=== PATIENT | female | born 1940 | race Caucasian/White ===

== ENCOUNTER → 2017-05-22 | Day surgery (SDC) | payer OTHER ==
[~2017-05-22] VITALS: Ht 162.6 cm; Wt 53.5 kg
[~2017-05-22] MED LIST: AMLO10TA2 PO; BOSW5TAB PO; CHLORHEXIDINE GLUCONATE 2 % 1 PACK (2 CLOTHS) TOPICAL PRN; DO NOT ADM ANY ANTICOAGULANT DRUGS PRN; EPINEPHrine HCL (1:1000) 1 MG/ML VIAL ONE; ERGO2000 PO; FISH100020 PO; INSULIN HUMAN REGULAR 1,000 UNITS/10 ML VIAL SQ PRN; LACTATED RINGER'S 1000 ML IV PRN; LIDOCAINE HCL 2% 100 MG/5 ML SYRINGE ONE; LISI20TA PO; LUTE6CAP2 PO; METOPROLOL TARTRATE 25 MG TAB PO PRN; MIDAZOLAM HCL 2 MG/2 ML VIAL ONE; POVIDONE IODINE 5% (ANTISEPSIS KIT) 4 APPLICATIONS EACH NARE PRN; PROPOFOL 200 MG/20 ML AMP IV ONE; SODIUM CHLORID 0.9% 500 ML IV PRN; VITA200C3 PO; VITA500T83 PO
[2017-05-22 06:00] VITALS: BP 130/55; PULSE 90; RESP 18; TEMP 98.2; O2SAT 96
[2017-05-22 06:38] LABS: AUTOMATED NEUTROPHIL # 3.5 TH/MM3 (1.8-7.7); BASOPHIL % 0.5 % (0.0-2.0); EOSINOPHIL % 0.7 % (0.0-4.0); HEMATOCRIT 39.9 % (35.0-46.0); HEMO FLAGS DIFF FINAL; LYMPH % 27.8 % (9.0-44.0); LYMPHOCYTE # 1.6 TH/MM3 (1.0-4.8); MEAN CELL VOLUME 94.7 FL (80.0-100.0); MEAN CORPUSCULAR HEMOGLOBIN 32.6 PG (27.0-34.0); MEAN CORPUSCULAR HGB CONC 34.4 % (32.0-36.0); MONO % 9.7 % (0.0-8.0); NEUT % 61.3 % (16.0-70.0); PLATELET COUNT 243 TH/MM3 (150-450); RED BLOOD COUNT 4.21 MIL/MM3 (4.00-5.30); RED CELL DISTRIBUTION WIDTH 13.4 % (11.6-17.2); WHITE BLOOD COUNT 5.7 TH/MM3 (4.0-11.0)
[2017-05-22 06:47] LABS: APTT (PATIENT) 23.7 SEC (24.3-30.1); INTERNATIONAL NORMALIZED RATIO 0.9 RATIO; PROTHROMBIN TIME - PATIENT 9.9 SEC (9.8-11.6)
[2017-05-22 08:05] VITALS: TEMP 97.6
[2017-05-22 08:30] VITALS: BP 110/56; PULSE 74; RESP 16; O2SAT 94
--- NOTE | 2017-05-22 08:44 | EKG ---
Date Performed: 05/22/2017 Time Performed: 06:45:14 PTAGE: 76 years EKG: Sinus rhythm NORMAL ECG NO PREVIOUS TRACING DOCTOR: Jose Zhang Interpretating Date/Time 05/22/2017 08:42:26
--- NOTE | 2017-05-22 10:10 | MR ---
cc: NONI CHENEY M.D. DATE: 05/22/2017 PROCEDURE Fiberoptic bronchoscopy, flexible. REASON FOR BRONCHOSCOPY Left suprahilar mass, malignancy suspect. DETAILS OF PROCEDURE Fiberoptic bronchoscopy performed via LMA. Vocal cords visualized appeared intact. Trachea mildly hyperemic. Patsy sharp. Right main stem bronchus, right upper, middle and lower lobes without obstruction or mass lesion. Left upper and lower lobes inspected. No obstructive pathology or mass lesion seen. Washings obtained from both sides of the tracheobronchial tree for routine TB, fungal cultures and cytological exam. Cytologic brushings left upper lobe obtained for cytological exam. Procedure well-tolerated. Patient transferred to recovery room in stable condition. IMPRESSION 1. Mild tracheobronchitis. 2. No obstruction or mass lesion. 3. Samples obtained as above. 4. Procedure well-tolerated. 5. Patient transferred to Recovery in stable condition. MD CJ Suazo/EDGARDO /9:28 AM /10:06 AM
== END | disposition home or self-care (01) ==
LOC: HSDC 05:09
PROVIDERS: ATTEND Internal Medicine Sleep Medicine
DX: R91.8 Other nonspecific abnormal finding of lung field (principal); J40 Bronchitis, not specified as acute or chronic; J44.9 Chronic obstructive pulmonary disease, unspecified; I10 Essential (primary) hypertension; R73.03 Prediabetes; F17.210 Nicotine dependence, cigarettes, uncomplicated; Z87.891 Personal history of nicotine dependence
CPT/HCPCS: 00520; 31623; 85025; 85610; 85730; 87015; 87070; 87077; 87102; 87116; 87205; 87206; 88112; 88305; 93005; J2250; J0171

== ENCOUNTER 2017-06-24 07:48 | Inpatient (IN) | payer OTHER, MEDICARE ==
[~2017-06-24] VITALS: Ht 160 cm; Wt 53.0 kg
[2017-06-24] VITALS (9 sets, daily range): BP systolic 112–160; BP diastolic 54–73; PULSE 65–81; RESP 16–18; TEMP 97.6–98.2; O2SAT 92–97
[~2017-06-24 07:48] MED LIST changes: -CHLORHEXIDINE GLUCONATE 2 % 1 PACK (2 CLOTHS) TOPICAL PRN; -DO NOT ADM ANY ANTICOAGULANT DRUGS PRN; -EPINEPHrine HCL (1:1000) 1 MG/ML VIAL ONE; -INSULIN HUMAN REGULAR 1,000 UNITS/10 ML VIAL SQ PRN; -LACTATED RINGER'S 1000 ML IV PRN; -LIDOCAINE HCL 2% 100 MG/5 ML SYRINGE ONE; -METOPROLOL TARTRATE 25 MG TAB PO PRN; -MIDAZOLAM HCL 2 MG/2 ML VIAL ONE; -POVIDONE IODINE 5% (ANTISEPSIS KIT) 4 APPLICATIONS EACH NARE PRN; -PROPOFOL 200 MG/20 ML AMP IV ONE; -SODIUM CHLORID 0.9% 500 ML IV PRN
[2017-06-24] MEDS: SODIUM CHLOR 0.9% 1000 ML IV SCH (08:15)
[2017-06-24] MEDS ORDERED: CHOL20005 PO (08:29)
[2017-06-24 08:49] LABS: AUTOMATED NEUTROPHIL # 4.6 TH/MM3 (1.8-7.7); BASOPHIL % 0.4 % (0.0-2.0); EOSINOPHIL % 0.7 % (0.0-4.0); HEMO FLAGS DIFF FINAL; LYMPH % 25.5 % (9.0-44.0); LYMPHOCYTE # 1.8 TH/MM3 (1.0-4.8); MEAN CELL VOLUME 95.4 FL (80.0-100.0); MEAN CORPUSCULAR HEMOGLOBIN 31.6 PG (27.0-34.0); MEAN CORPUSCULAR HGB CONC 33.1 % (32.0-36.0); MONO % 9.8 % (0.0-8.0); NEUT % 63.6 % (16.0-70.0); PLATELET COUNT 279 TH/MM3 (150-450); RED CELL DISTRIBUTION WIDTH 13.6 % (11.6-17.2); WHITE BLOOD COUNT 7.2 TH/MM3 (4.0-11.0)
[2017-06-24 09:00] LABS: APTT (PATIENT) 25.1 SEC (24.3-30.1); INTERNATIONAL NORMALIZED RATIO 0.9 RATIO
[2017-06-24] MEDS ORDERED: LIDOCAINE HCL 1% 20 ML VIAL ONE ×2 (09:17→10:20)
[2017-06-24] MEDS ORDERED: MIDAZOLAM HCL 2 MG/2 ML VIAL ONE ×2 (09:21→09:57)
--- NOTE | 2017-06-24 10:33 | PD.RAD ---
Post CT Procedure Prog Note Pre Procedure Diagnosis: (1) Lung mass Post Procedure Diagnosis: (1) Lung mass Procedure Date: Jun 24, 2017 Supervising Radiologist: Neftali Gonzalez Estimated blood loss: <5 ml Plan of Activity Patient to Unit: ROPU Patient Condition: Good Additional Comments: 3 x 20g core biopsies of left upper lobe mass. Small PTX following, placed 8F left apical chest tube See PACS Report for procedural detail/treatment Neftali Gonzalez MD Jun 24, 2017 10:33
[2017-06-24] MEDS ORDERED: ONDANSETRON HCL 4 MG/2 ML VIAL IVP PRN (11:15)
[2017-06-24] MEDS ORDERED: SODIUM CHLORIDE 0.9% FLUSH 10 ML FLUSH IV FLUSH PRN (11:15)
[2017-06-24] MEDS ORDERED: NALOXONE HCL 0.4 MG/ML AMP IV PRN (11:15)
[2017-06-24] MEDS ORDERED: ACETAMINOPHEN 325 MG TAB PO PRN (11:15)
--- NOTE | 2017-06-24 11:17 | RADRPT ---
EXAM DATE/TIME: 06/24/2017 10:44 [facility] COMPARISON: CT NEEDLE BIOPSY LUNG, LEFT, June 24, 2017, 9:54. INDICATIONS : Post left lung biopsy. MEDICAL HISTORY : None. SURGICAL HISTORY : None. ENCOUNTER: Initial ACUITY: 1 day PAIN SCORE: Non-responsive. LOCATION: Bilateral chest FINDINGS: There is a pigtail catheter in place with the distal coil overlying the left lung apex. I do not see a pneumothorax. Left upper lobe mass is present. CONCLUSION: Catheter in place overlying the left lung without obvious pneumothorax. Left upper lobe mass. Ori Rios MD on June 24, 2017 at 11:14 Board Certified Radiologist. This report was verified electronically.
[2017-06-24] MEDS ORDERED: PILL SPLITTER OTHER PRN (11:45)
--- NOTE | 2017-06-24 12:55 | RADRPT ---
EXAM DATE/TIME: 06/24/2017 09:54 [facility] COMPARISON: No previous studies available for comparison. INDICATIONS : History of suprahilar left upper lobe mass with nondiagnostic transbronchial biopsy. Image data biops y has been requested. SEDATION TIME: 45 minutes BIOPSY SITE: Left MEDICATION(S): 1.) 3 mg midazolam (Versed) IV 2.) 175 mcg fentanyl (Sublimaze) IV DEVICE(S): 1.) 20 gauge Temno core biopsy needle MEDICAL HISTORY : Hypertension. SURGICAL HISTORY : None. ENCOUNTER: Initial ACUITY: 1 day PAIN SCORE: 0/10 LOCATION: Left chest A total of three core specimen(s) were obtained and sent to the laboratory for pathologic evaluation. PROCEDURE: 1. CT guided lung biopsy. 2. Conscious sedation with continuous EKG and oximetry monitoring. 3. EKG and oximetry remained stable throughout the procedure. Prior to the procedure informed consent was obtained. Any appropriate prior imaging studies were rev iewed. Using automated exposure control and adjustment of the mA and/or kV according to patient size, radiation dose was kept as low as reasonably achievable to obtain optimal diagnostic quality images. DICOM format image data is available electronically for review and comparison. The site was prepped in a sterile fashion. Full sterile technique was used, including cap, mask, bharat rile gloves and gown and a large sterile sheet. Hand hygiene and 2% chlorhexidine and/or betadine/al cohol prep was utilized per protocol for cutaneous antisepsis. The skin and subcutaneous tissues wer e infiltrated with local anesthetic solution. With CT guidance the previously identified target was localized. Biopsy was performed using the presc ribed needle as above. Adequate hemostasis was obtained with compression at the puncture site. Follow-up CT scan demonstrated a small pneumothorax. Therefore, decision was made to place a smallbor e chest tube. Please see chest tube procedure report for details. Conscious sedation was performed with the prescribed dosages and duration as above in the presence of an independent trained radiology nurse to assist in the monitoring of the patient. EKG and oximetry remained stable throughout the procedure. The patient tolerated the procedure well and there were no complications. The patient was sent to Radiology Outpatient Unit in stable condition. CONCLUSION: 1. CT-guided 20-gauge core biopsies of left upper lobe central lung mass, as above. Neftali Gonzalez MD on June 24, 2017 at 12:50 Board Certified Radiologist. This report was verified electronically.
--- NOTE | 2017-06-24 12:56 | RADRPT ---
EXAM DATE/TIME: 06/24/2017 09:54 INDICATIONS : A large left pneumothorax status post lung biopsy. SEDATION TIME: 45 - please note this includes the previous lung biopsy procedure. MEDICATION(S): 1.) 3 mg midazolam (Versed) IV 2.) 175 mcg fentanyl (Sublimaze) IV DEVICE(S): 1.) 8 Fr Yandel MEDICAL HISTORY : Hypertension. SURGICAL HISTORY : None. ENCOUNTER: Initial ACUITY: 1 day PAIN SCORE: 0/10 LOCATION: Left chest PROCEDURE: 1.) Conscious sedation with continuous EKG and oximetry monitoring. 2.) EKG and oximetry remained stable throughout the procedure. PROCEDURE : 1. CT guided chest tube placement. 2. Conscious sedation with continuous EKG and oximetry monitoring. The risks, benefits and alternatives to the procedure were explained and verbal and written consent w as obtained. The site was prepped in sterile fashion. Full sterile technique was used, including ca p, mask, sterile gloves and gown and a large sterile sheet. Hand hygiene and 2% chlorhexidine and/or betadine/alcohol prep was utilized per protocol for cutaneous antisepsis. The skin and subcutaneous tissues were infiltrated with local anesthetic solution. Using automated exposure control and adjus tment of the mA and/or kV according to patient size, radiation dose was kept as low as reasonably ach ievable to obtain optimal diagnostic quality images. DICOM format image data is available electronic ally for review and comparison. With CT guidance the chest was punctured and the prescribed catheter was placed in the lung apex. Wal l suction was applied. Post procedure images demonstrate satisfactory position of the tube. The cat heter was sutured in place and a Percu-Stay was applied. Conscious sedation was performed with the prescribed dosages and duration as above. The patient costa ated the procedure well and there were no complications. EKG and oximetry remained stable throughout the procedure. The patient was sent to post anesthesia recovery in stable condition. CONCLUSION: 1. Placement of 8 Frisian nonlocking left apical chest tube for treatment of pneumothorax status post lung biopsy. Neftali Gonzalez MD on June 24, 2017 at 12:53 Board Certified Radiologist. This report was verified electronically.
[2017-06-24] MEDS ORDERED: MORPHINE SULFATE 4 MG/ML INJ IV PUSH PRN (14:15)
[2017-06-24] MEDS: ACETAMINOPHEN/HYDROcodone 325 MG/7.5 MG TAB PO PRN ×2 (15:01→23:30)
--- NOTE | 2017-06-24 15:15 | HHI.HP ---
HPI Service [facility] Primary Care Physician Unknown Admission Diagnosis Diagnoses: Chief Complaint: Pneumothorax after CT-guided lung biopsy. Travel History International Travel<30 Days: No Contact w/Intl Traveler <30 Da: No Traveled to Known Affected Are: No History of Present Illness 76-year-old female with a medical history significant for hypertension, breast cancer status post lumpectomy who was brought into the radiology department for CT-guided biopsy of a left lung mass. The patient subsequently had a pneumothorax after the procedure requiring chest tube placement. Hospitalist service contacted for admission. The patient is evaluated in the recovery area. She reports that it is painful to take deep breaths but otherwise feeling okay. No chest pressure. She reports the only mass was found incidentally on a chest x-ray that was obtained after she reported some rib pain from a mechanical fall. Review of Systems Constitutional: DENIES: Fever, Chills Except as stated in HPI: all other systems reviewed are Neg Past Family Social History Past Medical History History of lung cancer status post lobectomy. Did not require radiation or chemotherapy. Hypertension Past Surgical History Lumpectomy 2 C-sections Skin cancer removal Reported Medications Reported Meds & Active Scripts Active Reported D3 Super Strength (Cholecalciferol) 2,000 Unit Cap 2,000 Units PO DAILY Fish Oil 1000 mg (Nocatee-3 Fatty Acids) 1 Cap Cap 1 Cap PO BID Osteo Bi-Flex One A Day (Myknwfsoz-Rqrkfshgivn-Jruuayu) 1 Tab 1 Tab PO DAILY Lutein 6 Mg Cap 6 Mg PO BID Vitamin C ER (Ascorbic Acid) 500 Mg Yao 500 Mg PO BID Vitamin E 200 Unit Cap 200 Units PO DAILY Lisinopril-Hctz 20-12.5 Mg Tab 1 Tab PO DAILY Amlodipine (Amlodipine Besylate) 10 Mg Tab 10 Mg PO HS Allergies: Coded Allergies: caffeine (Unverified Allergy, Severe, TACHYCARDIA, 06/24/17) famotidine (Verified Allergy, Severe, Twitching, 06/24/17) lactase (Verified Allergy, Severe, Diarrhea, 06/24/17) nut - unspecified (Verified Allergy, Severe, Anaphylaxis, 06/24/17) shellfish derived (Verified Allergy, Severe, Anaphylaxis, 06/24/17) Sulfa (Sulfonamide Antibiotics) (Unverified Allergy, Intermediate, Hives, 06/24/17) metoclopramide (Unverified Allergy, Mild, Twitching, 06/24/17) Uncoded Allergies: NUTS (Allergy, Severe, Anaphylaxis, 05/21/17) TAPE (Allergy, Intermediate, Rash, 06/24/17) Family History Father has history of lung cancer Social History Patient smoked tobacco on and off about 1 pack per day. She reports she is down to 3-4 cigarettes a day. Admits to occasional beer Physical Exam Vital Signs Vital Signs Date Time Temp Pulse Resp B/P (MAP) Pulse Ox O2 Delivery O2 Flow Rate FiO2 06/24/17 12:00 69 16 117/55 (75) 95 06/24/17 11:30 78 16 142/69 (93) 96 06/24/17 11:00 72 16 136/62 (86) 96 06/24/17 10:45 98.0 81 16 160/73 (102) 94 06/24/17 08:03 98.2 71 18 133/58 (83) 97 06/24/17 08:03 Room Air Physical Exam GENERAL: This is a well-nourished, well-developed patient, in no apparent distress. SKIN: Left upper chest dressing appear intact, left upper chest tube in place to waterseal. No leaks noted. HEAD: Atraumatic. Normocephalic. No temporal or scalp tenderness. EYES: Pupils equal round and reactive. Extraocular motions intact. No scleral icterus. No injection or drainage. ENT: Nose without bleeding, purulent drainage or septal hematoma. Throat without erythema, tonsillar hypertrophy or exudate. Uvula midline. Airway patent. NECK: Trachea midline. No JVD or lymphadenopathy. Supple, nontender, no meningeal signs. CARDIOVASCULAR: Regular rate and rhythm without murmurs, gallops, or rubs. RESPIRATORY: Respiratory effort is fair. Clear to auscultation in all lung rivas except for diminished breath sounds in the left upper lung rivas.No wheezes, rales, or rhonchi. GASTROINTESTINAL: Abdomen soft, non-tender, nondistended. No hepato-splenomegaly , or palpable masses. No guarding. MUSCULOSKELETAL: Extremities without clubbing, cyanosis, or edema. No joint tenderness, effusion, or edema noted. No calf tenderness. Negative Homans sign bilaterally. NEUROLOGICAL: Awake and alert. Cranial nerves II through XII intact. Motor and sensory grossly within normal limits. Five out of 5 muscle strength in all muscle groups. Normal speech. Laboratory Laboratory Tests Test 06/24/17 08:39 White Blood Count 7.2 Red Blood Count 4.50 Hemoglobin 14.2 Hematocrit 43.0 Mean Corpuscular Volume 95.4 Mean Corpuscular Hemoglobin 31.6 Mean Corpuscular Hemoglobin Concent 33.1 Red Cell Distribution Width 13.6 Platelet Count 279 Mean Platelet Volume 8.4 Neutrophils (%) (Auto) 63.6 Lymphocytes (%) (Auto) 25.5 Monocytes (%) (Auto) 9.8 Eosinophils (%) (Auto) 0.7 Basophils (%) (Auto) 0.4 Neutrophils # (Auto) 4.6 Lymphocytes # (Auto) 1.8 Monocytes # (Auto) 0.7 Eosinophils # (Auto) 0.0 Basophils # (Auto) 0.0 CBC Comment DIFF FINAL Differential Comment Prothrombin Time 10.0 Prothromb Time International Ratio 0.9 Activated Partial Thromboplast Time 25.1 Result Diagram: 06/24/17 0839 Imaging Last Impressions Lung Biopsy CT 06/24/17 0000 Signed Impressions: Service Date/Time: Saturday, June 24, 2017 09:54 - CONCLUSION: 1. CT- guided 20-gauge core biopsies of left upper lobe central lung mass, as above. Neftali Gonzalez MD Chest X-Ray 06/24/17 0000 Signed Impressions: Service Date/Time: Saturday, June 24, 2017 10:44 - CONCLUSION: Catheter in place overlying the left lung without obvious pneumothorax. Left upper lobe mass. Ori Rios MD Chest Tube Insertion 06/24/17 0000 Signed Impressions: Service Date/Time: Saturday, June 24, 2017 09:54 - CONCLUSION: 1. Placement of 8 English nonlocking left apical chest tube for treatment of pneumothorax status post lung biopsy. MD Brendan Carlin VTE Risk Assessment Brendan VTE Risk Assessment: No/Low Risk (score <= 1) VTE Pharm Contraindication: High risk for bleeding Caprini Risk Assessment Model Point Value = 1 Point Value = 2 Point Value = 3 Point Value = 5 Age 41-60 Minor surgery BMI > 25 kg/m2 Swollen legs Varicose veins or History of unexplained or recurrent spontaneous Oral contraceptives or hormone replacement Sepsis (< 1 month) Serious lung disease, including pneumonia (< 1 month) Abnormal pulmonary function Acute myocardial infarction Congestive heart failure (< 1 month) History of inflammatory bowel disease Medical patient at bed rest Age 61-74 Arthroscopic surgery Major open surgery (> 45 min) Laparoscopic surgery (> 45 min) Malignancy Confined to bed (> 72 hours) Immobilizing plaster cast Central venous access Age >= 75 History of VTE Family history of VTE Factor V Leiden Prothrombin [id number] Lupus anticoagulant Anticardiolipin antibodies Elevated serum homocysteine Heparin-induced thrombocytopenia Other congenital or acquired thrombophilia Stroke (< 1 month) Elective arthroplasty Hip, pelvis, or leg fracture Acute spinal cord injury (< 1 month) Prophylaxis Regimen Total Risk Factor Score Risk Level Prophylaxis Regimen 0-1 Low Early ambulation 2 Moderate Order ONE of the following: *Sequential Compression Device (SCD) *Heparin 5000 units SQ BID 3-4 Higher Order ONE of the following medications: *Heparin 5000 units SQ TID *Enoxaparin/Lovenox 40 mg SQ daily (WT < 150 kg, CrCl > 30 mL/min) *Enoxaparin/Lovenox 30 mg SQ daily (WT < 150 kg, CrCl > 10-29 mL/min) *Enoxaparin/Lovenox 30 mg SQ BID (WT < 150 kg, CrCl > 30 mL/min) AND/OR *Sequential Compression Device (SCD) 5 or more Highest Order ONE of the following medications: *Heparin 5000 units SQ TID (Preferred with Epidurals) *Enoxaparin/Lovenox 40 mg SQ daily (WT < 150 kg, CrCl > 30 mL/min) *Enoxaparin/Lovenox 30 mg SQ daily (WT < 150 kg, CrCl > 10-29 mL/min) *Enoxaparin/Lovenox 30 mg SQ BID (WT < 150 kg, CrCl > 30 mL/min) AND *Sequential Compression Device (SCD) Assessment and Plan Problem List: (1) Pneumothorax after biopsy ICD Code: J95.811 - Postprocedural pneumothorax Plan: Status post chest tube placement. IR following. Repeat chest x-ray in a.m. Supplemental oxygen as needed. Patient control (2) Hypertension ICD Code: I10 - Essential (primary) hypertension Plan: Controlled. Continue amlodipine and lisinopril. Physician Certification 2 Midnight Certification Type: Admission for Inpatient Services Order for Inpatient Services The services are ordered in accordance with Medicare regulations or non- Medicare payer requirements, as applicable. In the case of services not specified as inpatient-only, they are appropriately provided as inpatient services in accordance with the 2-midnight benchmark. Estimated LOS (days): 2 days is the estimated time the patient will need to remain in the hospital, assuming treatment plan goals are met and no additional complications. Post-Hospital Plan: Home Felipe Montalvo MD Jun 24, 2017 15:14
[2017-06-24] MEDS: SODIUM CHLORIDE 0.9% FLUSH 10 ML FLUSH IV FLUSH SCH (20:04)
[2017-06-25 00:34] VITALS: BP_SYST 109; BP_SYST 132; BP_DIAS 51; BP_DIAS 60; PULSE 60; RESP 18; TEMP 97.6; O2SAT 98
[2017-06-25 04:14] VITALS: BP 113/56; PULSE 62; RESP 17; TEMP 97.2; O2SAT 96
--- NOTE | 2017-06-25 06:59 | RADRPT ---
EXAM DATE/TIME: 06/25/2017 05:52 [facility] COMPARISON: CHEST EXPIRATION ONLY, June 24, 2017, 10:44. CT NEEDLE BIOPSY LUNG, LEFT, June 24, 2017, 9:54. INDICATIONS : Post left lung biopsy, evaluate pneumothorax MEDICAL HISTORY : None. SURGICAL HISTORY : chest tube ENCOUNTER: Subsequent ACUITY: 2 days PAIN SCORE: 0/10 LOCATION: Bilateral chest FINDINGS: Small caliber left chest tube is present. Minimal basal atelectasis. No pneumothorax. heart size uppe r limits normal. Left upper lobe mass noted. CONCLUSION: 1. Small caliber left chest tube. Patient status post biopsy of left upper lobe mass. No pneumothorax . Nilton Gilmore MD on June 25, 2017 at 6:55 Board Certified Radiologist. This report was verified electronically.
[2017-06-25 08:00] VITALS: BP 138/63; PULSE 70; RESP 17; TEMP 96.7; O2SAT 92
[2017-06-25] MEDS: SODIUM CHLORIDE 0.9% FLUSH 10 ML FLUSH IV FLUSH SCH (08:11)
[2017-06-25] MEDS: ACETAMINOPHEN/HYDROcodone 325 MG/7.5 MG TAB PO PRN (08:11)
[2017-06-25] MEDS: SODIUM CHLOR 0.9% 1000 ML IV SCH (08:15)
[2017-06-25] MEDS ORDERED: LISINOPRIL 20 MG TAB PO SCH (09:00)
[2017-06-25] MEDS ORDERED: HYDROCHLOROTHIAZIDE 25 MG TAB PO SCH (09:00)
[2017-06-25] MEDS ORDERED: NON-FORMULARY DRUG (Lisinopril-Hctz 1 TAB) PO SCH (09:00)
--- NOTE | 2017-06-25 11:35 | HHI.PR ---
Subjective Remarks Patient reports she is feeling great. She wants to go home. She denies any shortness of breath. Objective Vitals Vital Signs Date Time Temp Pulse Resp B/P (MAP) Pulse Ox O2 Delivery O2 Flow Rate FiO2 06/25/17 08:00 96.7 70 17 138/63 (88) 92 06/25/17 08:00 70 06/25/17 06:19 21 06/25/17 04:14 97.2 62 17 113/56 (75) 96 06/25/17 00:34 97.6 60 18 109/51 (70) 98 06/24/17 20:01 65 06/24/17 20:00 97.6 68 17 112/54 (73) 92 06/24/17 16:00 74 06/24/17 15:37 97.7 65 18 124/60 (81) 95 06/24/17 12:00 69 16 117/55 (75) 95 I/O 06/24/17 06/24/17 06/24/17 06/25/17 06/25/17 06/25/17 06:59 14:59 22:59 06:59 14:59 22:59 Intake Total 1000 ml 660 ml 280 ml Output Total 600 ml Balance 1000 ml 60 ml 280 ml Intake Oral 660 ml 280 ml IV Total 1000 ml Output Urine Total 600 ml # Voids 1 1 Result Diagram: 06/24/17 0839 Imaging Last Impressions Chest X-Ray 06/25/17 0000 Signed Impressions: Service Date/Time: June 05:52 - CONCLUSION: 1. Small caliber left chest tube. Patient status post biopsy of left upper lobe mass. No pneumothorax. Nilton Gilmore MD Lung Biopsy CT 06/24/17 0000 Signed Impressions: Service Date/Time: Saturday, June 24, 2017 09:54 - CONCLUSION: 1. CT- guided 20-gauge core biopsies of left upper lobe central lung mass, as above. Neftali Gonzalez MD Chest Tube Insertion 06/24/17 0000 Signed Impressions: Service Date/Time: Saturday, June 24, 2017 09:54 - CONCLUSION: 1. Placement of 8 Scottish nonlocking left apical chest tube for treatment of pneumothorax status post lung biopsy. Neftali Gonzalez MD Objective Remarks GENERAL: This is a well-nourished, well-developed patient, in no apparent distress. SKIN: Left upper chest dressing appear intact, left upper chest tube in place to waterseal. No leaks noted. CARDIOVASCULAR: Normal rate and regular rhythm without murmurs, gallops, or rubs. RESPIRATORY: Good respiratory efforts. Breath sounds equal and clear to auscultation bilaterally. GASTROINTESTINAL: Abdomen soft, non-tender, non-distended. Normal active bowel sounds MUSCULOSKELETAL: Extremities without cyanosis, or edema. NEURO: Alert & Oriented x4 to person, place, time, situation. Moves all ext x4 PSYCH: Appropriate mood and affect. A/P Problem List: (1) Pneumothorax after biopsy ICD Code: J95.811 - Postprocedural pneumothorax Plan: Status post chest tube placement. IR following. Repeat chest x-ray today did not show a pneumothorax. Further chest tube management per IR. MARIA ALEJANDRA RN. Supplemental oxygen as needed. Patient control (2) Hypertension ICD Code: I10 - Essential (primary) hypertension Plan: Controlled. Continue amlodipine and lisinopril. Felipe Montalvo MD Jun 25, 2017 11:35
[2017-06-25 12:00] VITALS: BP 95/52; PULSE 69; RESP 17; TEMP 98.1; O2SAT 93
--- NOTE | 2017-06-25 14:49 | RADRPT ---
EXAM DATE/TIME: 06/25/2017 14:19 [facility] COMPARISON: CT NEEDLE BIOPSY LUNG, LEFT, June 24, 2017, 9:54. CHEST EXPIRATION ONLY, June 25, 2017, 5:52. INDICATIONS : Pneumothorax. MEDICAL HISTORY : Hypertension. Chronic obstructive pulmonary disease. SURGICAL HISTORY : None. ENCOUNTER: Initial ACUITY: 1 day PAIN SCORE: 0/10 LOCATION: Bilateral chest FINDINGS: Masslike density left upper lobe has not changed There is no appreciable pleural effusion for techniq ue. Heart and mediastinum are unremarkable. Chest tube is present on the left side. CONCLUSION: No pneumothorax. Licha Ramon MD on June 25, 2017 at 14:47 Board Certified Radiologist. This report was verified electronically.
[2017-06-25 16:00] VITALS: BP 125/58; PULSE 79; RESP 18; TEMP 98.2; O2SAT 95
--- NOTE | 2017-06-25 16:19 | RADRPT ---
EXAM DATE/TIME: 06/25/2017 00:00 [facility] COMPARISON: No previous studies available for comparison. INDICATIONS : pneumothorax post lung biopsy DEVICE(S): 1.) Vaseline occlusive dressing PROCEDURE : Chest tube removal. Using aseptic technique the previously placed chest tube was easily removed in one piece and Vaseline gauze and sterile dressing was applied. Chest radiograph is to be obtained. There CONCLUSION: Uncomplicated chest tube removal. Denton Terrazas MD on June 25, 2017 at 16:17 Board Certified Radiologist. This report was verified electronically.
--- NOTE | 2017-06-25 17:48 | RADRPT ---
EXAM DATE/TIME: 06/25/2017 16:45 [facility] COMPARISON: CHEST SINGLE AP, June 25, 2017, 14:19. INDICATIONS : Pneumothorax MEDICAL HISTORY : None. SURGICAL HISTORY : chest tube. Left lung biopsy ENCOUNTER: Subsequent ACUITY: 2 days PAIN SCORE: 0/10 LOCATION: Bilateral chest FINDINGS: There is no appreciable pleural effusion for technique. Heart and mediastinum are unremarkable. Prev iously seen left chest tube has been removed. No definite pneumothorax is seen for technique. Left up per lobe mass is again seen. CONCLUSION: No definite pneumothorax is seen for technique. Licha Ramon MD on June 25, 2017 at 17:46 Board Certified Radiologist. This report was verified electronically.
== END 2017-06-25 19:24 | disposition home or self-care (01) | DRG 200 ==
LOC: HRAD 07:48 → HRIP 07:49 → N07A 11:11 → HRAD 15:17
PROVIDERS: ADMIT Family Medicine; ATTEND Family Medicine
PROC: 0BBG3ZX Excision of Left Upper Lung Lobe, Percutaneous Approach, Diagnostic (ICD-10-PCS; principal; 2017-06-24)
PROC: 0W9B30Z Drainage of Left Pleural Cavity with Drainage Device, Percutaneous Approach (ICD-10-PCS; 2017-06-24)
DX: J95.811 Postprocedural pneumothorax (principal); C34.02 Malignant neoplasm of left main bronchus; J44.9 Chronic obstructive pulmonary disease, unspecified; I10 Essential (primary) hypertension; E11.9 Type 2 diabetes mellitus without complications; F17.210 Nicotine dependence, cigarettes, uncomplicated; Z80.1 Family history of malignant neoplasm of trachea, bronchus and lung; Z85.118 Personal history of other malignant neoplasm of bronchus and lung; Z85.3 Personal history of malignant neoplasm of breast; Z85.828 Personal history of other malignant neoplasm of skin; Z90.2 Acquired absence of lung [part of]; Z88.2 Allergy status to sulfonamides; Z91.018 Allergy to other foods; Z91.013 Allergy to seafood
CPT/HCPCS: 32405; 32557; 71010; 77012; 85025; 85610; 85730; 88305; 88341; 88342; C1729; C1769; J2250; J3010; J7030

== ENCOUNTER → 2017-08-19 | Day surgery (SDC) | payer OTHER ==
[~2017-08-19] MED LIST changes: +ACETAMINOPHEN 1000 MG/100 ML 100 ML IV ONE; +BUPIVACAINE/EPINEPHRINE 0.25% 50 ML VIAL ONE; +CHOL20005 PO; -ERGO2000 PO; +LACTATED RINGER'S 1000 ML INJ 1,000 ML ONE; +MIDAZOLAM HCL 2 MG/2 ML VIAL ONE; +PROPOFOL 500 MG/50 ML BTL IV ONE; +SODIUM CHLORIDE 0.9% INJ 10 ML ONE; +ceFAZolin INJ 1,000 MG VIAL ONE
--- NOTE | 2017-08-19 14:49 | TN ---
cc: OBED PICKERING M.D. DATE OF SURGERY: 08/19/2017 PREOPERATIVE DIAGNOSIS Lung cancer, in need of Tfvmnq-F-Zhuw. POSTOPERATIVE DIAGNOSIS Lung cancer, in need of Bqocjj-J-Iycx. PROCEDURE 1. Attempted left subclavian Qjxrxd-P-Gdko placement by percutaneous insertion, abandoned secondary to inability to cannulate the subclavian vein. 2. Cutdown to left subclavian vein in the deltopectoral groove, abandoned secondary to inability to advance guidewire past the clavicle in the left subclavian vein. 3. Attempted right subclavian vein percutaneous insertion, abandoned secondary to inability to cannulate the subclavian vein. 4. Placement of right IJ under fluoroscopic guidance with Wlqqyt-N-Ieoh for chemotherapy. ANESTHESIA General. SURGEON Dr. Pickering. INDICATION This is a pleasant 76-year-old lady who has lung cancer. She needs an Encexv-N-Hlvn for poor IV access and chemotherapy. DETAILS OF PROCEDURE The patient was taken to the operating room and placed in the supine position. After anesthesia her bilateral neck and chest were prepped with Betadine. We had planned on placing a left subclavian Iwbqiu-A-Gpqs because of the tumor on the left side. We then attempt to cannulate the subclavian vein on the left side. And after numerous attempts we are unable to cannulate the subclavian vein and for this reason it is abandoned We then do a cutdown in the deltopectoral groove and actually are able to get proximal and distal control of a vein in the deltopectoral groove. We make an small venotomy. I am able to cannulate the vein, however, the guidewire cannot be advanced past the subclavian at the junction of the clavicle. Multiple attempts at this is done but it cannot be advanced, and for this reason this is abandoned. We then simply tie off the proximal and distal portion of the vein in the deltopectoral groove. The deep layer is closed with 3-0 Vicryl and the skin is closed with 4-0 Vicryl. We then on the right side attempt to cannulate the right subclavian vein. I did unfortunately stick the artery one time, but again I cannot cannulate the subclavian vein and for this reason this technique is abandoned We are then able to identify the right IJ using a tracer needle, cannulate the IJ on the right side. An 18-gauge needle is was then used to cannulate the subclavian vein with good blood return. We then place the guidewire under fluoroscopic guidance and see it advance into the superior vena cava and into the atrial junction. The catheter is then cut to size, about 22 cm. We tunnel the catheter to the right chest wall. We then place the introducer and dilator under fluoroscopic guidance. The catheter is then threaded through the introducer so it lays in the superior vena cava. The small puncture site is closed with a Vicryl suture. The catheter is then adjusted so it lays in the superior vena cava. The catheter is cut at 22 cm. The port is then snapped into place and port is then placed in the subcutaneous pocket, secured to the deep layer with 3-0 Vicryl and the skin is closed with 4-0 Vicryl. It is noted that we aspirate blood quite easily and flush with the heparinized saline solution. The wounds are then covered with a sterile bandage. The patient had a stat. chest x-ray which showed no pneumothorax and placement of the Zpjdqu-R-Oxfb on the right side. Discussed the intraoperative events with the patient and the patient's family, and she may proceed with her chemotherapy and radiation therapy as planned. Obed Pickering MD JDB/EDGARDO /1:51 PM /2:22 PM
== END | disposition home or self-care (01) ==
LOC: ESDC 09:19
PROVIDERS: ATTEND Surgery
DX: Z45.2 Encounter for adjustment and management of vascular access device (principal); C34.90 Malignant neoplasm of unspecified part of unspecified bronchus or lung
CPT/HCPCS: 00532; 36561; 77001; C1788; J0131; J0690; J1642; J2250; J3010; J7120

== ENCOUNTER 2017-08-28 12:28 | Emergency (ER) | payer OTHER ==
[~2017-08-28] VITALS: Ht 162.6 cm; Wt 52.7 kg
[~2017-08-28 12:28] MED LIST changes: -ACETAMINOPHEN 1000 MG/100 ML 100 ML IV ONE; -BUPIVACAINE/EPINEPHRINE 0.25% 50 ML VIAL ONE; -CHOL20005 PO; +D200CAP PO; -LACTATED RINGER'S 1000 ML INJ 1,000 ML ONE; -MIDAZOLAM HCL 2 MG/2 ML VIAL ONE; -PROPOFOL 500 MG/50 ML BTL IV ONE; -SODIUM CHLORIDE 0.9% INJ 10 ML ONE; -ceFAZolin INJ 1,000 MG VIAL ONE
[2017-08-28 12:35] VITALS: BP 140/64; PULSE 91; RESP 16; TEMP 98.4; O2SAT 95
--- NOTE | 2017-08-28 13:06 | PD ---
HPI Chief Complaint: Cardiac Complaint Time Seen by Provider: 12:55 Travel History International Travel<30 days: No Contact w/Intl Traveler<30days: No Traveled to known affect area: No History of Present Illness HPI The patient was seen and examined in the presence of the nurse. This patient complains of sensation of racing heartbeat. Duration one week. Symptoms severity is mild to moderate. No syncope or presyncopal symptoms or chest pain. She denies history of cardiac disease. She currently feels well. She is getting chemotherapy and radiation for lung cancer. No alleviating factors. No exacerbating factors. PFSH Past Medical History Cancer: Yes (RIGHT BREAST, LUNG, SKIN) Cardiovascular Problems: No Diabetes: Yes (BOARDERLINE) Patient Takes Glucophage: No Endocrine: No Gastrointestinal Disorders: Yes (REFLUX) Genitourinary: No Hepatitis: No Hiatal Hernia: No Hypertension: Yes Immune Disorder: No Medical other: Yes (HX FALL 04/2017 pt. sts "I tripped on a cored.") Musculoskeletal: Yes (OSTEOPENIA) Neurologic: Yes (OCCULAR MIGRAINES) Psychiatric: No Reproductive: No Respiratory: Yes (MASS LEFT LUNG, COPD) Immunizations Current: No Thyroid Disease: No Menopausal: Yes Past Surgical History Abdominal Surgery: Yes (betty, x-vsgjbddb-[id number]) AICD: No Appendectomy: Yes Cardiac Surgery: No Section: Yes (X2) Ear Surgery: No Endocrine Surgery: No Eye Surgery: No Genitourinary Surgery: No Gynecologic Surgery: Yes (RIGHT LUMPECTOMY, CYST REMOVED FROM OVARY) Joint Replacement: No Oral Surgery: Yes (T/A) Pacemaker: No Thoracic Surgery: Yes (lung bx) Other Surgery: Yes Social History Alcohol Use: No Tobacco Use: No Substance Use: No Allergies-Medications (Allergen,Severity, Reaction): Coded Allergies: caffeine (Unverified Allergy, Severe, TACHYCARDIA, 08/28/17) famotidine (Verified Allergy, Severe, Twitching, 08/28/17) lactase (Verified Allergy, Severe, Diarrhea, 08/28/17) nut - unspecified (Verified Allergy, Severe, Anaphylaxis, 08/28/17) shellfish derived (Verified Allergy, Severe, Anaphylaxis, 08/28/17) Sulfa (Sulfonamide Antibiotics) (Unverified Allergy, Intermediate, Hives, 08/28/17) metoclopramide (Unverified Allergy, Mild, Twitching, 08/28/17) Uncoded Allergies: NUTS (Allergy, Severe, Anaphylaxis, 05/21/17) TAPE (Allergy, Intermediate, Rash, 06/24/17) Reported Meds & Prescriptions Reported Meds & Active Scripts Active Reported D3 Super Strength (Cholecalciferol) 2,000 Unit Cap 2,000 Units PO DAILY Osteo Bi-Flex One A Day (Tomymakvc-Clqcfjictvt-Efmrppw) 1 Tab 1 Tab PO DAILY Lutein 6 Mg Cap 6 Mg PO BID Vitamin C ER (Ascorbic Acid) 500 Mg Yao 500 Mg PO BID Vitamin E 200 Unit Cap 200 Units PO DAILY Lisinopril-Hctz 20-12.5 Mg Tab 1 Tab PO DAILY Amlodipine (Amlodipine Besylate) 10 Mg Tab 10 Mg PO HS Review of Systems General / Constitutional: No: Fever Eyes: No: Visual changes HENT: No: Headaches Cardiovascular: Positive: Palpitations, Tachycardia, No: Chest Pain or Discomfort Respiratory: No: Shortness of Breath Gastrointestinal: No: Abdominal Pain Genitourinary: No: Dysuria Musculoskeletal: No: Pain Skin: No Rash Neurologic: No: Weakness Psychiatric: No: Depression Endocrine: No: Polydipsia Hematologic/Lymphatic: No: Easy Bruising Physical Exam Narrative GENERAL: Well-nourished, well-developed patient in no apparent distress. SKIN: Focused skin assessment reveals no rash and nodules. Skin is Warm and dry. HEAD: Atraumatic. Normocephalic. EYES: Pupils equal and round. No scleral icterus. No injection or drainage. ENT: No nasal bleeding or discharge. Mucous membranes pink and moist. NECK: Trachea midline. No JVD. CARDIOVASCULAR: Regular rate and rhythm. No murmur appreciated. Heart rate is between 80 and 90 RESPIRATORY: No accessory muscle use. Clear to auscultation. Breath sounds equal bilaterally. GASTROINTESTINAL: Abdomen soft, non-tender, nondistended. Hepatic and splenic margins not palpable. MUSCULOSKELETAL: No obvious deformities. No clubbing. No cyanosis. No edema. NEUROLOGICAL: Awake and alert. No obvious cranial nerve deficits. Motor grossly within normal limits. Normal speech. PSYCHIATRIC: Appropriate mood and affect; insight and judgment normal. Data Data Last Documented VS Vital Signs Date Time Temp Pulse Resp B/P (MAP) Pulse Ox O2 Delivery O2 Flow Rate FiO2 08/28/17 13:38 76 20 106/51 (69) 95 08/28/17 12:35 98.4 Room Air Orders Orders Iv Access Insert/Monitor (08/28/17 13:01) Complete Blood Count With Diff (08/28/17 13:01) Basic Metabolic Panel (Bmp) (08/28/17 13:01) Electrocardiogram (08/28/17 ) Telephone Messenger / Telemetry MO.Q8H (08/28/17 13:01) Labs Laboratory Tests Test 08/28/17 13:00 White Blood Count 9.7 TH/MM3 Red Blood Count 3.60 MIL/MM3 Hemoglobin 10.9 GM/DL Hematocrit 33.1 % Mean Corpuscular Volume 92.0 FL Mean Corpuscular Hemoglobin 30.3 PG Mean Corpuscular Hemoglobin Concent 33.0 % Red Cell Distribution Width 12.6 % Platelet Count 477 TH/MM3 Mean Platelet Volume 7.6 FL Neutrophils (%) (Auto) 82.5 % Lymphocytes (%) (Auto) 11.0 % Monocytes (%) (Auto) 4.3 % Eosinophils (%) (Auto) 1.8 % Basophils (%) (Auto) 0.4 % Neutrophils # (Auto) 8.0 TH/MM3 Lymphocytes # (Auto) 1.1 TH/MM3 Monocytes # (Auto) 0.4 TH/MM3 Eosinophils # (Auto) 0.2 TH/MM3 Basophils # (Auto) 0.0 TH/MM3 CBC Comment DIFF FINAL Differential Comment Blood Urea Nitrogen 15 MG/DL Creatinine 0.59 MG/DL Random Glucose 108 MG/DL Calcium Level 8.9 MG/DL Sodium Level 132 MEQ/L Potassium Level 4.2 MEQ/L Chloride Level 96 MEQ/L Carbon Dioxide Level 31.1 MEQ/L Anion Gap 5 MEQ/L Estimat Glomerular Filtration Rate 99 ML/MIN [facility] Medical Decision Making Medical Screen Exam Complete: Yes Emergency Medical Condition: Yes Medical Record Reviewed: Yes Differential Diagnosis Cardiac arrhythmia, palpitations, ectopy Narrative Course I have reviewed the patient's electronic medical record. Reviewed her oncologist note from a week ago IV placed CBC shows minor anemia Metabolic profile shows minor hyponatremia but normal potassium I reviewed her EKG which shows sinus rhythm without ST elevation or ectopy Extended cardiac monitoring reveals sinus rhythm with a rare PVC I observed her for a while and she remains in sinus rhythm but no dangerous rhythm problem and is asymptomatic Should discuss this with her physician and return if she worsens Diagnosis Primary Impression: Palpitations Additional Impression: Lung malignancy Qualified Codes: C34.11 - Malignant neoplasm of upper lobe, right bronchus or lung Additional Instructions: The patient was advised to follow up with their physician and return if they worsen. Med/Other Pt SpecificInfo: Other Disposition: 01 DISCHARGE HOME Condition: Stable Domo Montes De Oca MD Aug 28, 2017 13:05
[2017-08-28 13:16] LABS: BASOPHIL % 0.4 % (0.0-2.0); EOSINOPHIL # 0.2 TH/MM3 (0-0.4); EOSINOPHIL % 1.8 % (0.0-4.0); HEMATOCRIT 33.1 % (35.0-46.0); HEMOGLOBIN 10.9 GM/DL (11.6-15.3); LYMPHOCYTE # 1.1 TH/MM3 (1.0-4.8); MEAN CORPUSCULAR HEMOGLOBIN 30.3 PG (27.0-34.0); MEAN PLATELET VOLUME 7.6 FL (7.0-11.0); MONO % 4.3 % (0.0-8.0); MONOCYTE # 0.4 TH/MM3 (0-0.9); NEUT % 82.5 % (16.0-70.0); PLATELET COUNT 477 TH/MM3 (150-450); RED CELL DISTRIBUTION WIDTH 12.6 % (11.6-17.2); WHITE BLOOD COUNT 9.7 TH/MM3 (4.0-11.0)
[2017-08-28 13:26] LABS: CALCIUM 8.9 MG/DL (8.5-10.1)
[2017-08-28 13:27] LABS: BICARBONATE 31.1 MEQ/L (21.0-32.0)
[2017-08-28 13:30] LABS: CREATININE 0.59 MG/DL (0.50-1.00)
[2017-08-28 13:38] VITALS: BP 106/51; PULSE 76; RESP 20; O2SAT 95
--- NOTE | 2017-08-30 21:13 | EKG ---
Date Performed: 08/28/2017 Time Performed: 12:46:46 PTAGE: 76 years EKG: Sinus rhythm NORMAL ECG PREVIOUS TRACING : 05/22/2017 06.45 DOCTOR: Tova Gonzales Interpretating Date/Time 08/30/2017 21:03:20
--- NOTE | 2017-08-30 21:13 | EKG ---
Date Performed: 08/28/2017 Time Performed: 12:46:46 PTAGE: 76 years EKG: Sinus rhythm NORMAL ECG PREVIOUS TRACING : 05/22/2017 06.45 DOCTOR: Tova Gonzales Interpretating Date/Time 08/30/2017 21:03:20
--- NOTE | 2017-08-30 21:13 | EKG ---
Date Performed: 08/28/2017 Time Performed: 12:46:46 PTAGE: 76 years EKG: Sinus rhythm NORMAL ECG PREVIOUS TRACING : 05/22/2017 06.45 DOCTOR: Tova Gonzales Interpretating Date/Time 08/30/2017 21:03:20
== END 2017-08-28 14:14 | disposition home or self-care (01) ==
LOC: PHED 12:28
DX: R00.2 Palpitations (principal); C34.11 Malignant neoplasm of upper lobe, right bronchus or lung; I10 Essential (primary) hypertension; R73.03 Prediabetes; Z85.3 Personal history of malignant neoplasm of breast; Z85.828 Personal history of other malignant neoplasm of skin; Z87.19 Personal history of other diseases of the digestive system; Z87.39 Personal history of other diseases of the musculoskeletal system and connective tissue; Z86.69 Personal history of other diseases of the nervous system and sense organs; Z87.09 Personal history of other diseases of the respiratory system
CPT/HCPCS: 80048; 85025; 93005

== ENCOUNTER 2018-04-16 06:18 | Day surgery (SDC) | payer OTHER ==
[~2018-04-16] VITALS: Ht 162.6 cm; Wt 53.6 kg
[~2018-04-16 06:18] MED LIST changes: -FISH100020 PO
[2018-04-16] MEDS ORDERED: OMEGCAP PO (06:54)
[2018-04-16] MEDS ORDERED: MAGN500T5 PO (06:54)
[2018-04-16] MEDS ORDERED: CYAN1TAB24 PO (06:54)
[2018-04-16] MEDS ORDERED: LORA0.5T PO (06:54)
[2018-04-16] MEDS ORDERED: FOLI400T PO (06:54)
[2018-04-16] MEDS ORDERED: SODIUM CHLOR 0.9% 1000 ML IV SCH (07:00)
[2018-04-16 07:01] VITALS: BP 150/64; PULSE 85; RESP 20; TEMP 98.7; O2SAT 95
[2018-04-16] MEDS ORDERED: LIDOCAINE 1%/EPINEPHrine 1:100,000 SOLN 20 ML VIAL ONE (07:15)
[2018-04-16] MEDS ORDERED: MIDAZOLAM HCL 2 MG/2 ML VIAL ONE (07:55)
[2018-04-16 08:50] VITALS: BP 151/50; PULSE 78; RESP 18; TEMP 98.4; O2SAT 99
[2018-04-16 09:05] VITALS: BP 133/68; PULSE 72; RESP 18; O2SAT 95
--- NOTE | 2018-04-16 09:31 | RADRPT ---
EXAM DATE: 04/16/2018 9:03 AM EDT AGE/SEX: 77 years / Female INDICATIONS: Femoral lesion. CLINICAL DATA: This is the patient's initial encounter. Patient reports that signs and symptoms have been present for 1 day and indicates a pain score of 0/10. MEDICAL/SURGICAL HISTORY: Carcinoma, breast. Carcinoma, lung. Appendectomy. Cholecystectomy. Hysterectomy. COMPARISON: No prior exams available for comparison. SEDATION TIME (min): 30min BIOPSY SITE: Left bone deep proximal femur MEDICATION(S): 4mg midazolam (Versed) IV 200mcg fentanyl (Sublimaze) IV DEVICE(S): 16 gauge Temno core biopsy needle 15cm One core specimen(s) sent to the laboratory for pathologic evaluation. . . PROCEDURE: CT guided Left bone deep biopsy Prior to the procedure informed consent was obtained. Any appropriate prior imaging studies were rev iewed. Using automated exposure control and adjustment of the mA and/or kV according to patient size, radiat ion dose was kept as low as reasonably achievable to obtain optimal diagnostic quality images. DICOM format image data is available electronically for review and comparison. The site was prepped in a sterile fashion. Full sterile technique was used, including cap, mask, bharat rile gloves and gown and a large sterile sheet. Hand hygiene and 2% chlorhexidine and/or betadine/al cohol prep was utilized per protocol for cutaneous antisepsis. The skin and subcutaneous tissues wer e infiltrated with local anesthetic solution. With CT guidance the previously identified target was localized. Biopsy was performed using the presc ribed needle as above. Adequate hemostasis was obtained with compression at the puncture site. Follow-up CT scan reveals no hemorrhage. The patient tolerated the procedure well and there were no complications. The patient was returned to the Radiology Outpatient Unit in stable condition. FINDINGS: Successful CT-guided 16-gauge core biopsy of left proximal femur lytic lesion as described above. CONCLUSION: 1. Uncomplicated CT guided biopsy. Electronically signed by: Denny Mills MD 04/16/2018 9:30 AM EDT
[2018-04-16 09:35] VITALS: BP 104/40; PULSE 70; RESP 18; O2SAT 95
[2018-04-16 10:05] VITALS: BP 101/40; PULSE 74; RESP 18; O2SAT 94
[2018-04-16 10:35] VITALS: BP 106/48; PULSE 74; RESP 18; O2SAT 94
== END 2018-04-16 11:05 | disposition home or self-care (01) ==
LOC: HRAD 06:18 → HRIP 06:20 → HRAD 11:05
PROVIDERS: ATTEND Internal Medicine Hematology & Oncology
DX: C79.51 Secondary malignant neoplasm of bone (principal); C34.92 Malignant neoplasm of unspecified part of left bronchus or lung; Z85.3 Personal history of malignant neoplasm of breast
CPT/HCPCS: 20225; 77012; 88307; 88311; 88341; 88342; 99152; 99153; J2250; J3010; J7030; 88305

== ENCOUNTER 2018-08-11 09:49 | Inpatient (IN) ==
[2018-08-11] MEDS ORDERED: Dexamethasone Inj 20 MG/5 ML Vial IV.PUSH ONE (10:24)
[2018-08-11] MEDS ORDERED: Chlorhexidine Gluconate 2% 1 Pack (2 Cloths) TOPICAL ONE (10:26)
[2018-08-11] MEDS ORDERED: Metoprolol Tartrate 25 MG Tablet PO ONE (10:26)
[2018-08-11] MEDS ORDERED: Sodium Chlor 0.9% Inj 40 ML, Bupivacaine Liposo PF 1.3% Inj 20 ML P-ARTICULR SCH ×2 (10:30)
[2018-08-11] MEDS ORDERED: Chlorhexidine 4% Topical 120 APPLIC/120 ML Bottle TOPICAL SCH (10:30)
[2018-08-11] MEDS ORDERED: ceFAZolin 2 GM Premix Inj 2 GM/50 ML PIGGYBACK IV.SIG SCH (11:00)
[2018-08-11] MEDS ORDERED: Sodium Chlor 0.9% Inj 500 ML IV.SIG SCH (11:00)
[2018-08-11] MEDS ORDERED: SODIUM CHLOR 0.9% IV.SIG SCH ×2 (11:00→16:00)
[2018-08-11] MEDS ORDERED: TRANEXAMIC ACID IV.SIG SCH ×2 (11:00→16:00)
[2018-08-11] MEDS ORDERED: Vancomycin Inj 1,000 MG in Sodium Chlor 0.9% Inj 250 ML IV.SIG SCH (11:00)
[2018-08-11] MEDS ORDERED: fentaNYL Citrate Inj 100 MCG/2 ML Ampul ONE (12:41)
[2018-08-11] MEDS ORDERED: fentaNYL Citrate Inj 250 MCG/5 ML Ampul ONE (12:42)
[2018-08-11] MEDS ORDERED: Bupivacaine Liposomal PF 1.3% Inj 20 ML Vial ONE (14:34)
[2018-08-11] MEDS ORDERED: Bisacodyl 10 MG Supp RECTAL PRN (14:55)
[2018-08-11] MEDS ORDERED: Morphine Inj 4 MG/ML Vial IV.PUSH PRN (14:55)
[2018-08-11] MEDS ORDERED: Post-op Orders (for Pharmacy) OTHER STA (14:55)
[2018-08-11] MEDS ORDERED: Aluminum/Magnesium/Simethacone Susp 30 ML UDC PO PRN (14:55)
--- NOTE | 2018-08-11 15:04 | P.OP ---
Preoperative Diagnosis: Left hip impending pathologic fracture. Left hip osteoarthritis Postoperative Diagnosis: Same Date of procedure: 08/11/18 Procedure: Left total hip arthroplasty, for impending pathologic fracture Anesthesia: GETA Surgeon: Pan Ernst MD Stone Polisher Hand: KAYLEIGH Casas The surgical procedure was assisted by my Advanced Registered Nurse Practitioner. My CRITICAL CARE NURSE PRACTITIONER presence was necessary throughout this case for the manipulation and positioning of the surgical extremity. My CRITICAL CARE NURSE PRACTITIONER was assisting me throughout the duration of this procedure. The skill set of an Advance Registered Nurse Practitioner was medically necessary to complete this procedure. During the surgical case, the surgical garment inspector was working at the back table and the Advance Registered Nurse Practitioner was directly assisting me. Operation and Findings: IMPLANT DESCRIPTION: 1. [place] Gription Cup, acetabular size 48. 2. [place] AltrX polyethylene, +4, 10 degree elevated lip. 4. [place] revision long femoral stem size 11, with collar, standard offset. 5. Femoral head/neck metal, 32, +1. ESTIMATED BLOOD LOSS: 250 cc. JUSTIFICATION FOR PROCEDURE: This patient has an impending pathologic fracture from metastatic lung cancer. The patient has been medically cleared. See my office notes for details. She understood the risks and benefits of surgical management. She understood the surgery was not to cure her of the metastatic disease of the hip but was rather to stabilize the hip because she was at significant risk for developing a pathologic fracture of the femoral neck. PROCEDURE: The patient was brought back to the operative theatre. Adequate anesthesia was obtained. The patient received intravenous vancomycin and Ancef. The patient was carefully placed on the operative table in the lateral decubitus position with an axillary roll and a well-padded down leg. The lower extremity was prepped and draped in the usual sterile fashion. We proceeded with a standard curvilinear incision centered around the tip of the greater trochanter. We then dissected through the deep fascia and placed a Charnley retractor protecting the sciatic nerve. The greater trochanteric bursa was reflected. We then incised through the piriformis attachment and tagged this with a #2 FiberWire. We then incised through the capsule in a T- shaped fashion and tagged this with a #2 FiberWire as well. We exposed the acetabulum. The labrum was calcified and was resected. We sequentially reamed up to a 48. We trialed the hip and placed the final cup in the appropriate anteversion and inclination. We used a 3-hole cup but ended up not putting any screws into the acetabular shell because it had excellent fixation. We placed a manhole cover. We placed an elevated 10 degree, +4 liner with the elevation portion in the posterior superior aspect. Osteotomy of the femoral neck was performed. We remove the femoral head and sent this to pathology. We found evidence of the tumor within the femoral neck which went down into the calcar just above the lesser trochanter very consistent with preoperative imaging. We removed all of the tumor from the calcar region. The patient still had intact calcar anteriorly and posteriorly but the central portion was eroded away from the tumor. The proximal femur was prepared with a rongeur, then a box osteotome, then a canal finder followed by a lateralizing hand spray operator. We sequentially broached the proximal femur. We calcar planed the proximal femur and irrigated removing any remnants of the bone. We trialed the hip with the broach in place. We did decide to use a long stem revision Karaya stem so as to help offload stresses because of the lack of the central portion of the calcar. We decided to use a collared prosthesis to give us extra support onto the anterior and posterior remaining calcar. The final femoral stem was impacted into position. Leg lengths were evaluated. We evaluated stability of the hip with the hip in the "position of sleep" and the hip flexed up to 90 degrees and internally rotated. We additionally tested both a "shuck" test and hip extension, confirming there was no undue tension while flexing the knee to 90 degrees during full hip extension. We also compared the length of the knees from preoperative compared to the trial and final stem as well. The final head was impacted and the hip was reduced. Once again we irrigated. We then repaired the capsule and the piriformis with the FiberWire suture. The deep fascia was closed with a #2 Stratafix, followed by 2-0 Vicryl in the skin and carlos. The post-op plan is to weight-bear as tolerated. We will follow posterior total hip precautions, including the use of a canvas knee splint. DVT prophylaxis will be performed with SCDs, SARBJIT hose, early mobilization, and Lovenox followed by aspirin.
[2018-08-11] MEDS ORDERED: *morphine SULFATE 4 MG/ML PERIprocedure ONLY ONE ×3 (15:19→15:41)
[2018-08-11] MEDS ORDERED: HYDROmorphone PF Inj 2 MG/ML Vial ONE (15:47)
--- NOTE | 2018-08-11 15:51 | P.DCO ---
- Physical Therapy Physical Therapy: Gait training, Transfer training, bed to chair Hip: Total hip Left Lower Extremity Weight Bearing: Weight bearing as tolerated Left Lower Extremity Range of Motion: Active ROM Additional instructions: Maintain posterior hip precautions times 6 weeks including the use of a knee immobilizer at night. - Nursing Nursing: Sebsatien teaching Dressing changes: Do not change dressing Additional instructions: First dressing change in the office - Certification Need for Home Health services: I have seen patient Claudia Faith on 08/11/18. My clinical findings support the need for the requested home health care services because: Need for Home Health Services: Limited ability to care for self, High risk of falls Homebound Certification: I certify that my clinical findings support that this patient is homebound because: Homebound Certification: Post-op weakness, Unsteady gait/balance
--- NOTE | 2018-08-11 16:00 | XR ---
EXAM DATE: 08/11/2018 2:54 PM EDT AGE/SEX: 77 years / Female INDICATIONS: Post Op Left Hip. CLINICAL DATA: This is the patient's initial encounter. Patient reports that signs and symptoms have been present for 1 day and indicates a pain score of Nonresponsive. MEDICAL/SURGICAL HISTORY: None. None. COMPARISON: POI, XR HIP AP AND LAT, LEFT, 05/28/2018. . FINDINGS: Single view the pelvis and 2 additional views left hip are obtained. Left hip arthroplasty. Acetabula r and femoral component are intact. Postsurgical changes. No hardware loosening or fracture CONCLUSION: Left hip arthroplasty. Electronically signed by: Enrique Cardenas MD 08/11/2018 3:59 PM EDT
[2018-08-11] MEDS: Senna/Docusate Sodium 8.6/50 MG Tablet PO SCH (20:43)
[2018-08-11] MEDS: amLODIPine 10 MG Tablet PO SCH (20:44)
[2018-08-11] MEDS: Multivitamin/Minerals Therapeutic Tablet PO SCH (20:44)
[2018-08-11] MEDS: Sod Chloride 0.9% Inj 1,000 ML IV.CONT SCH (20:45)
[2018-08-11] MEDS ORDERED: Zolpidem Tartrate 5 MG Tablet PO PRN (21:00)
[2018-08-12] MEDS: Sod Chloride 0.9% Inj 1,000 ML IV.CONT SCH ×2 (06:15→16:00)
[2018-08-12] MEDS: Acetaminophen 325 MG Tablet PO PRN ×3 (06:33→21:54)
[2018-08-12 07:13] LABS: Hematocrit 27.4 % (35.0-46.0); Hemoglobin 9.4 gm/dL (11.6-15.3)
--- NOTE | 2018-08-12 07:24 | P.PNOP ---
Subjective Interval history: The patient is resting comfortably in bed in no acute distress. The patient does report moderate discomfort to the left hip. There is minimal pain when resting and increased pain with activity. The patient has been ambulatory. The patient is unsure whether she wants to go home today or stay an additional night. There is also some question whether the patient may want to go to a [facility] facility for rehabilitation. Physical Exam Vital signs: Vital Signs 08/11/18 10:42 08/11/18 15:15 08/11/18 15:30 Temperature 98.4 F 96.9 F L Pulse Rate 82 102 H 82 Respiratory Rate 16 22 14 Blood Pressure 152/58 H 174/74 H 141/63 H Pulse Oximetry 97 100 100 08/11/18 15:45 08/11/18 16:00 08/11/18 16:15 Temperature 98.2 F Pulse Rate 85 79 81 Respiratory Rate 16 14 14 Blood Pressure 151/67 H 162/72 H 164/72 H Pulse Oximetry 100 100 100 08/11/18 20:00 08/12/18 00:00 08/12/18 03:52 Temperature 97.3 F L 97.8 F 98.6 F Pulse Rate 84 81 89 Respiratory Rate 18 19 15 Blood Pressure 156/70 H 136/62 140/63 Pulse Oximetry 99 95 96 Intake & Output 08/11/18 08/12/18 08/12/18 18:59 06:59 18:59 Intake Total 2365.41 / 2365.41 200 / 200 Output Total 250 / 250 Balance 2115.41 / 2115.41 200 / 200 Weight 54.1 kg Intake: IV 1405.41 / 1405.41 200 / 200 LR 1000 mL Inj 1,000 ML @ 30 1000 / 1000 mls/hr IV.SIG .Q24H LILA Rx#: [id number] Cyklokapron Inj 541 MG In NS 105.41 / 105.41 Inj 100 ML @ 200 mls/hr IV.SIG ONCE [facility]ILA Rx#:[id number] Vancomycin Inj 1,000 MG In NS 250 / 250 Inj 250 ML @ 250 mls/hr IV.SIG GRIEVANCE COORDINATOR LILA Rx#:[id number] Ancef 2 GM Premix Inj 2 gm In 50 / 50 50 ml @ 100 mls/hr IV.SIG GRIEVANCE COORDINATOR LILA Rx#:[id number] Ancef Inj 1,000 MG In NS Inj 200 / 200 100 ML @ 200 mls/hr IV.SIG Q6H LILA Rx#:[id number] Oral 460 / 460 Anesthesia Amount 500 / 500 Output: Estimated Blood Loss 250 / 250 Other: # Voids 1 4 Date of Last Bowel Movement 08/11/18 Weight On Admission 54.1 kg Narrative: The patient's dressing is clean, dry, and intact. EHL/TA/G are intact. 2+ pedal pulse. The patient's calf is soft and nontender. Sensation is intact to light touch distally. Results - Labs CBC & Chem 7: 08/12/18 05:53 Laboratory Results - last 24 hr 08/11/18 08/12/18 10:25 05:53 Hgb 9.4 L Hct 27.4 L Blood Type AB Positive Blood Type Recheck Required Antibody Screen Negative - Imaging Impressions Hip X-Ray 08/11/18 14:54 CONCLUSION: Left hip arthroplasty. - Procedures Left total hip arthroplasty, for impending pathologic fracture Assessment and Plan - Problem List (1) Osteoarthritis of left hip Code(s): M16.12 - Unilateral primary osteoarthritis, left hip Status: Acute (2) Status post total hip replacement, left Code(s): Z96.642 - Presence of left artificial hip joint Status: Acute (3) Impending pathologic fracture Code(s): M84.40XA - Pathological fracture, unspecified site, initial encounter for fracture Status: Acute - Assessment and Plan POD #1: Left total hip arthroplasty, for impending pathologic fracture. 1. Weightbearing as tolerated on left lower extremity. 2. Lovenox followed by aspirin for DVT prophylaxis. 3. Ice as needed for swelling. 4. Stable per ortho for discharge to home health versus a [facility] facility. The patient is stable for discharge once medically cleared and when comfortable with discharge. 5. The patient will follow up with Dr. Ernst and/or KAYLEIGH Rosas as previously scheduled. 6. Maintain posterior hip precautions, including the use of a knee immobilizer while in bed. 7. Awaiting pathology report on femoral head sample.
[2018-08-12] MEDS ORDERED: Dexamethasone Inj 20 MG/5 ML Vial IV.PUSH ONE (08:00)
[2018-08-12] MEDS: Senna/Docusate Sodium 8.6/50 MG Tablet PO SCH ×2 (08:32→21:08)
[2018-08-12] MEDS: Multivitamin/Minerals Therapeutic Tablet PO SCH ×2 (08:32→21:08)
[2018-08-12] MEDS ORDERED: NIVOLUMAB 240 MG IV.PUSH SCH (09:00)
[2018-08-12] MEDS: Enoxaparin Inj 40 MG/0.4 ML Syringe SQ SCH (14:10)
[2018-08-12] MEDS: amLODIPine 10 MG Tablet PO SCH (21:08)
[2018-08-13] MEDS: Sod Chloride 0.9% Inj 1,000 ML IV.CONT SCH (03:38)
[2018-08-13 07:28] LABS: Hematocrit 27.1 % (35.0-46.0); Hemoglobin 9.4 gm/dL (11.6-15.3)
[2018-08-13] MEDS: Multivitamin/Minerals Therapeutic Tablet PO SCH (08:11)
[2018-08-13] MEDS: Senna/Docusate Sodium 8.6/50 MG Tablet PO SCH (08:11)
--- NOTE | 2018-08-13 09:49 | P.PNOP ---
Subjective Interval history: Patient is resting comfortably in bed with minimal pain to the left hip. Son is at bedside. The patient has requested to go home today with home health. Physical Exam Vital signs: Vital Signs 08/12/18 12:00 08/12/18 16:00 08/12/18 20:00 Temperature 98.3 F 97.6 F 98.0 F Pulse Rate 83 81 92 H Respiratory Rate 18 18 20 Blood Pressure 127/60 133/61 128/63 Pulse Oximetry 99 98 97 08/13/18 00:00 Temperature 98.1 F Pulse Rate 92 H Respiratory Rate 18 Blood Pressure 107/53 L Pulse Oximetry 98 Intake & Output 08/12/18 08/13/18 08/13/18 18:59 06:59 18:59 Intake Total 205.41 / 205.41 Balance 205.41 / 205.41 Weight 54.5 kg Intake: IV 205.41 / 205.41 Other: # Voids 3 Date of Last Bowel Movement 08/11/18 08/11/18 Narrative: The patient's dressing is clean, dry, and intact. EHL/TA/G are intact. 2+ pedal pulse. The patient's calf is soft and nontender. Sensation is intact to light touch distally. Results - Labs CBC & Chem 7: 08/13/18 06:24 Laboratory Results - last 24 hr 08/13/18 06:24 Hgb 9.4 L Hct 27.1 L - Procedures Left total hip arthroplasty, for impending pathologic fracture Assessment and Plan - Problem List (1) Osteoarthritis of left hip Code(s): M16.12 - Unilateral primary osteoarthritis, left hip Status: Acute (2) Status post total hip replacement, left Code(s): Z96.642 - Presence of left artificial hip joint Status: Acute (3) Impending pathologic fracture Code(s): M84.40XA - Pathological fracture, unspecified site, initial encounter for fracture Status: Acute - Assessment and Plan POD #2: Left total hip arthroplasty, for impending pathologic fracture. 1. Weightbearing as tolerated on left lower extremity. 2. Lovenox followed by aspirin for DVT prophylaxis. 3. Ice as needed for swelling. 4. Stable per ortho for discharge to home with home health today. 5. The patient will follow up with Dr. Ernst and/or KAYLEIGH Rosas as previously scheduled. 6. Maintain posterior hip precautions, including the use of a knee immobilizer while in bed. 7. Awaiting pathology report on femoral head sample.
--- NOTE | 2018-08-13 09:51 | P.DS ---
Date of admission: 08/11/18 09:49 Primary care physician: Do Mervin Gutierrez Attending physician on discharge: Pan Ernst Anticipated date of discharge: 08/13/18 Brief History from admission: The patient was admitted to the hospital for impending pathologic fracture of the left hip to have a left total hip arthroplasty. DS: Diagnosis - Discharge Diagnosis (1) Osteoarthritis of left hip Status: Acute (2) Status post total hip replacement, left Status: Acute (3) Impending pathologic fracture Status: Acute DS: Medications - Discharge Medications Prescriptions: aspirin 325 mg PO DAILY 30 Days #30 tab enoxaparin [Lovenox] 40 mg SUB-Q DAILY 10 Days #10 units hydrocodone-acetaminophen [[place]] 1 - 2 tab PO Q4-6H #50 tab DS: Summary Hospital Course: The patient was admitted to the hospital for severe osteoarthritis of the left hip to have a left total hip arthroplasty. The patient's surgery went well with no complication. The patient is on a [regular] diet. The patient's DVT prophylaxis includes use of [Lovenox followed by aspirin]. The patient is weightbearing as tolerated. The patient was discharged [home with home health] and will follow up in the office with Dr. Ernst and/or KAYLEIGH Rosas as previously scheduled. The patient will maintain posterior hip precautions. The patient will use a canvas knee splint while in bed. - Time Spent with Patient Total time spent providing and/or coordinating discharge services: Greater than 30 minutes - Quality: VTE Deep Vein Thrombosis/Pulmonary Embolism Present on Admission: No Exam Vital signs: Vital Signs 08/12/18 12:00 08/12/18 16:00 08/12/18 20:00 Temperature 98.3 F 97.6 F 98.0 F Pulse Rate 83 81 92 H Respiratory Rate 18 18 20 Blood Pressure 127/60 133/61 128/63 Pulse Oximetry 99 98 97 08/13/18 00:00 Temperature 98.1 F Pulse Rate 92 H Respiratory Rate 18 Blood Pressure 107/53 L Pulse Oximetry 98 Intake & Output 08/12/18 08/13/18 08/13/18 18:59 06:59 18:59 Intake Total 205.41 / 205.41 Balance 205.41 / 205.41 Weight 54.5 kg Intake: IV 205.41 / 205.41 Other: # Voids 3 Date of Last Bowel Movement 08/11/18 08/11/18 Narrative: The patient's dressing is clean, dry, and intact. EHL/TA/G are intact. 2+ pedal pulse. The patient's calf is soft and nontender. Sensation is intact to light touch distally. Results Procedures completed during hospitalization: Left total hip arthroplasty, for impending pathologic fracture Pending studies at discharge: Pending at discharge 08/11/18 07:40 Surgical [PTH] Routine Labs on day of discharge: Labs from last 24 hours 08/13/18 06:24 Hgb 9.4 L Hct 27.1 L - Impressions ITS Impressions Hip X-Ray 08/11/18 14:54 CONCLUSION: Left hip arthroplasty. Discharge Plan - Discharge Disposition Patient Disposition: W/Home Health Service - Discharge Condition Condition: Stable - Discharge Order Discharge Orders: Discharge Order (Routine); Ordered 08/11/18 Ordered By: Denton Pope - Discharge Details Anticipated Discharge Date: 08/13/18 Discharge Comment: Follow postoperative hip precautions. Use the knee immobilizer while in bed. - Physicians Team Primary Care Provider: Do Mervin Gutierrez Attending Provider: Pan Ernst Other Providers: Trudi Brush - Rxs /Orders / Referrals /Forms Prescriptions: New aspirin 325 mg Tablet 325 mg PO DAILY 30 Days Qty: 30 RF: 0 enoxaparin [Lovenox] 40 mg/0.4 mL Syringe 40 mg SUB-Q DAILY 10 Days Qty: 10 RF: 0 hydrocodone-acetaminophen [[place]] 5-325 mg Tablet 1 - 2 tab PO Q4-6H Qty: 50 RF: 0 Continue amlodipine 10 mg Tablet 10 mg PO HS ascorbic acid (vitamin C) [Vitamin C] 500 mg Tablet Extended Release 500 mg PO Q12H cholecalciferol (vitamin D3) [Vitamin D3] 2,000 unit Capsule 2,000 unit PO DAILY cyanocobalamin (vitamin B-12) 1,000 mcg Capsule 1,000 mcg PO DAILY folic acid 400 mcg Tablet 0.4 mg PO DAILY [id number] [Osteo Bi-Flex Triple Strength] 750 mg-644 mg - 30 mg-1 mg Tablet 1 tab PO DAILY lutein 6 mg Tablet 6 mg PO BID magnesium gluconate 27 mg magnesium (500 mg) Tablet 27 mg PO DAILY nivolumab [Opdivo] 100 mg/10 mL Solution 240 mg IV Q2W Discontinued omega-3 fatty acids-fish oil [Fish Oil] 340-1,000 mg Capsule 1 cap PO DAILY vitamin E 200 unit Capsule 200 unit PO DAILY Ambulatory Orders / Order Sets / DME: Adjustable Commode 3-in-1 (1 each) (Routine) Location: Determined by Patient Ordered By: Denton Pope Walker With Front Wheels (1 each) (Routine) Location: Determined by Patient Ordered By: Denton Pope Referrals: Pan Ernst MD [Physician] - See Instructions (The patient should follow with Dr. Ernst or John Pope APRN as previously scheduled) Do Mervin Gutierrez MD [Primary Care Provider] - See Instructions - Discharge Instructions Patient Printed Instructions: Hydrocodone/Acetaminophen (By mouth), Total Hip Replacement (DC) Additional Instructions: Take medication as prescribed. Rx for Lovenox 40mg/0.4mL (10units), Aspirin 325mg (30), [place] 5-325mg (50) given at time of discharge.
[2018-08-13] MEDS: Acetaminophen 325 MG Tablet PO PRN (10:49)
[2018-08-13 13:10] VITALS: BP 117/50; PULSE 79; RESP 16; TEMP 99; O2SAT 97
[2018-08-13] MEDS: Enoxaparin Inj 40 MG/0.4 ML Syringe SQ SCH (13:18)
== END 2018-08-13 14:23 | disposition home health service (06) ==
LOC: HSDI 09:49 → N06 16:45
PROVIDERS: ADMIT Orthopaedic Surgery; ATTEND Orthopaedic Surgery